=== PATIENT | female | born 1980 | race Caucasian/White ===

== ENCOUNTER 2022-06-22 13:57 | Observation (INO) ==
[2022-06-22] MEDS ORDERED: Melatonin 3 MG TABLET PO PRN (16:21)
[2022-06-22] MEDS ORDERED: Naloxone 0.4 MG/ML INJ IVP PRN (16:21)
[2022-06-22] MEDS ORDERED: Ondansetron 4 MG/2 ML VIAL IVP PRN (16:21)
[2022-06-22] MEDS ORDERED: D5% in Water 1,000 ML IVC PRN (16:44)
[2022-06-22] MEDS ORDERED: *HR* Dextrose 50 % in Water (Syg) 50 ML SYRINGE IVP PRN (16:44)
[2022-06-22] MEDS ORDERED: Dextrose Gel 15 GM/37.5 ML TUBE PO PRN ×2 (16:44)
[2022-06-22] MEDS ORDERED: *HR* Promethazine 25 MG/ML VIAL IM PRN (16:45)
[2022-06-22] MEDS ORDERED: *HR* OxyCODONE Immed Rel 5 MG TABLET PO PRN (16:45)
[2022-06-22] MEDS ORDERED: *HR* HYDROmorphone 4 MG TABLET PO PRN (16:59)
[2022-06-22] MEDS ORDERED: *HR* Phytonadione 10 MG/ML AMPUL SQ ONE (17:00)
[2022-06-22] MEDS: *HR* HYDROmorphone 2 MG TABLET PO PRN ×2 (17:26→21:27)
[2022-06-22] MEDS ORDERED: Insulin DETEMIR 100 UNIT/ML X5UNITS SUBQ SCH (21:00)
[2022-06-22] MEDS ORDERED: *HR* LORazepam 2 MG/ML VIAL IVP ONE (22:26)
[2022-06-23] MEDS ORDERED: Acetaminophen 325 MG TABLET PO PRN (01:34)
[2022-06-23] MEDS: 0.9 % Sodium Chloride 1,000 ML IVC SCH ×2 (01:45→07:54)
[2022-06-23] MEDS: *HR* HYDROmorphone 2 MG TABLET PO PRN ×2 (03:07→13:57)
[2022-06-23 03:30] VITALS: BP 129/74; PULSE 97; TEMP 99.1; O2SAT 94
[2022-06-23 05:05] LABS: Basophils % 0.3 %; Eosinophils # 0.1 K/mcL (0.0-0.6); Eosinophils % 0.8 %; Hematocrit 28.1 % (35.3-44.9); Hemoglobin 9.3 g/dL (11.5-15.4); Immature Granulocytes % 0.5 % (0-4); Lymphocytes # 1.1 K/mcL (0.6-4.6); Lymphocytes % 8.9 %; Mean Corpuscular HGB Conc 33.1 g/dL (31.6-35.5); Mean Corpuscular Hemoglobin 26.6 pg (28.0-33.3); Mean Corpuscular Volume 80.3 fL (83.0-100.0); Mean Platelet Volume 10.1 fL (9.4-12.4); Monocytes % 7.5 %; Neutrophils # 10.5 K/mcL (1.6-8.9); Platelet Count 474 K/mcL (140-400); White Blood Count 12.8 K/mcL (4.3-11.1)
[2022-06-23 05:13] LABS: Prothrombin Time 33.6 Seconds (9.4-12.1)
[2022-06-23 05:24] LABS: Calcium 8.4 mg/dL (8.6-10.3); Potassium 3.3 mEq/L (3.5-5.1)
[2022-06-23] MEDS ORDERED: 0.9 % Sodium Chloride 1,000 ML IVC SCH (07:15)
[2022-06-23] MEDS ORDERED: *HR* HYDROmorphone (PF) 1 MG/ML SYRINGE IVP ONE (07:41)
[2022-06-23] MEDS: Insulin LISPRO 300 UNITS/3 ML VIAL SUBQ SCH ×2 (07:55→13:34)
[2022-06-23] MEDS ORDERED: polyethylene glycoL 3350 17 GM POWD.PACK PO SCH (09:00)
[2022-06-23] MEDS ORDERED: Vancomycin 1,250 MG/262.5 ML IV.SOLN IVPB SCH (10:00)
[2022-06-23 14:57] LABS: Adenovirus Not Detected (Not Detect); Bordetella Pertussis Not Detected (Not Detect); Chlamydophila pneumoniae Not Detected (Not Detect); Coronavirus 229E Not Detected (Not Detect); Coronavirus HKU1 Not Detected (Not Detect); Coronavirus NL63 Not Detected (Not Detect); Coronavirus OC43 Not Detected (Not Detect); Human Metapneumovirus Not Detected (Not Detect); Human Rhinovirus/Enterovirus Not Detected (Not Detect); Influenza A Subtype 2009 H1 Not Detected (Not Detect); Influenza B Not Detected (Not Detect); Mycoplasma pneumoniae Not Detected (Not Detect); Parainfluenza Virus 1 Not Detected (Not Detect); Parainfluenza Virus 2 Not Detected (Not Detect); Parainfluenza Virus 3 Not Detected (Not Detect); Parainfluenza Virus 4 Not Detected (Not Detect); Respiratory Syncytial Virus Not Detected (Not Detect); SARS-CoV-2 Not Detected (Not Detect)
== END 2022-06-23 16:24 | disposition short-term general hospital (02) ==
LOC: 2ANU → SUATTDRO 15:28
PROVIDERS: ADMIT Internal Medicine; ATTEND Internal Medicine